=== PATIENT | female | born 1995 | race Caucasian/White ===

== ENCOUNTER 2020-01-07 14:49 | Emergency (ER) | payer MEDICAID ==
[~2020-01-07] VITALS: Ht 152.4 cm; Wt 82.6 kg
--- NOTE | 2020-01-07 14:50 | NUR ---
BIBA TAKEN TO BED 12
[2020-01-07 15:00] VITALS: BP 110/46
--- NOTE | 2020-01-07 15:10 | NUR ---
PT WAS BIBA FROM HOME FOR ANXIETY ATTACK AND SOB. DENIES COVID-19 RELATED SX AT THIS TIME. REPORTS DRINKING ALCOHOL ONE HOUR AGO, THAT EXACERBATED THE ANXIETY. PATIENT STATES PAIN OF 0/10 AT THIS TIME; VSS; PATIENT POSITIONED FOR COMFORT; HOB ELEVATED; BEDRAILS UP X2; BED DOWN. ER MD MADE AWARE OF PT STATUS.
[2020-01-07 16:17] VITALS: BP 98/47
--- NOTE | 2020-01-07 16:17 | NUR ---
Patient discharged with v/s stable. Written and verbal after care instructions given and explained. Patient verbalized understanding. Ambulatory with steady gait. All questions addressed prior to discharge. Advised to follow up with PMD.
[2020-01-07 16:58] LABS: BARBITURATE, URINE NEGATIVE ng/ml (NEG <=200); BENZODIAZEPINE, URINE NEGATIVE ng/mL (NEG <=200); CANNABINOID, URINE NEGATIVE ng/mL (NEG <=50); COCAINE, URINE NEGATIVE ng/mL (NEG <=300); OPIATE, URINE NEGATIVE ng/mL (NEG <=2000); PHENCYCLIDINE SCREEN,URINE NEGATIVE ng/mL (NEG <=25)
== END 2020-01-07 16:17 | disposition home or self-care (01) ==
LOC: MED 14:49
DX: R06.00 Dyspnea, unspecified (principal); F41.9 Anxiety disorder, unspecified; Z90.49 Acquired absence of other specified parts of digestive tract
CPT/HCPCS: 71045; 80305; 81002; 81025; 99284; Q0092

== ENCOUNTER 2020-10-27 14:14 | Emergency (ER) | payer MEDICAID ==
[~2020-10-27] VITALS: Ht 154.9 cm; Wt 77.6 kg
[2020-10-27 14:16] VITALS: BP 116/78
--- NOTE | 2020-10-27 14:30 | NUR ---
25 YO F BIB SELF FOR C/C OF 7/10 HEAD PAIN FROM HEAD LACERATION OBTAINED LAST NIGHT. PT STATES SHE GOT "BLACK OUT DRUNK" LAST NIGHT AND WOKE UP THIS MORNING WITH LAC TO OCCIPITAL PORTION OF HEAD, PT UNSURE HOW SHE OBTAINED LACERATION. PT STATES SHES FEELING DIZZY AND NAUSEOUS WELL. DENIES BLURRY VISION, SOB. NO PMH NKDA
--- NOTE | 2020-10-27 14:55 | NUR ---
PT TAKEN TO BED 10.
--- NOTE | 2020-10-27 15:07 | NUR ---
DR. KOO AT BEDSIDE EVALUATING PT
[2020-10-27] MEDS ORDERED: NACL 0.9% 1,000 ML IV ONE (15:15)
[2020-10-27] MEDS ORDERED: LIDOCAINE MPF 1% 10 MG/ML VIAL INJ ONE (15:15)
[2020-10-27] MEDS ORDERED: ONDANSETRON 4 MG/2 ML VIAL IVP ONE (15:15)
--- NOTE | 2020-10-27 15:48 | NUR ---
Pt taken to CT via w/c accompanied by VICTORIA Rose.
[2020-10-27 16:00] LABS: ANION GAP 17.2 (8-16); CARBON DIOXIDE 24.8 mmol/L (21-32); CREATININE 0.6 mg/dL (0.6-1.3); TOTAL BILIRUBIN 0.5 mg/dL (0.0-1.0)
[2020-10-27 16:05] LABS: BASOPHILS # (AUTO) 0.1 K/uL (0.00-0.22); BASOPHILS % (AUTO) 0.5 % (0.0-2.0); HEMATOCRIT 39.7 % (36-48); HEMOGLOBIN 13.2 g/dL (12.0-16.0); LYMPHOCYTES # (AUTO) 1.1 K/uL (2.5-16.5); LYMPHOCYTES % (AUTO) 7.3 % (20.5-51.1); MEAN CORPUSCULAR HEMOGLOBIN 29 pg (27-31); MEAN CORPUSCULAR HGB CONC 33 g/dL (33-37); MEAN CORPUSCULAR VOLUME 86.2 fL (80-94); MONOCYTES # (AUTO) 0.3 K/uL (0.8-1.0); MONOCYTES % (AUTO) 2.2 % (1.7-9.3); NEUTROPHILS # (AUTO) 13.3 K/uL (1.8-7.7); PLATELET COUNT (AUTO) 306 K/uL (140-450); RED CELL DISTRIBUTION WIDTH 14.2 % (11.6-13.7); WHITE BLOOD COUNT (AUTO) 14.8 K/uL (4.8-10.8)
--- NOTE | 2020-10-27 17:23 | NUR ---
DR. KOO AT BEDSIDE PERFORMING LAC REPAIR
[2020-10-27] MEDS ORDERED: ONDA4TAB PO (18:14)
[2020-10-27] MEDS ORDERED: ACET-8386 PO (18:14)
[2020-10-27 18:30] VITALS: BP 106/50
--- NOTE | 2020-10-27 18:30 | NUR ---
Patient discharged with v/s stable. Written and verbal after care instructions given and explained. Patient alert, oriented and verbalized understanding of instructions. Ambulatory with steady gait. All questions addressed prior to discharge. ID band removed. Patient advised to follow up with PMD. Rx of OZIEL GONZALEZ given. Patient educated on indication of medication including possible reaction and side effects. Opportunity to ask questions provided and answered.
== END 2020-10-27 18:30 | disposition home or self-care (01) ==
LOC: MED 14:14
DX: S06.0X9A Concussion with loss of consciousness of unspecified duration, initial encounter (principal); S01.01XA Laceration without foreign body of scalp, initial encounter; W18.39XA Other fall on same level, initial encounter; Y93.89 Activity, other specified; Y92.89 Other specified places as the place of occurrence of the external cause; Y99.8 Other external cause status
CPT/HCPCS: 36415; 70450; 72125; 80053; 81002; 85025; 96361; 96374; 99285; J2001; J2405; J7030

== ENCOUNTER 2021-07-15 03:19 | Emergency (ER) | payer BC, MEDICAID ==
[~2021-07-15] VITALS: Ht 152.4 cm; Wt 76.2 kg
[~2021-07-15 03:19] MED LIST: ACET-8386 PO; ONDA4TAB PO
[2021-07-15 03:20] VITALS: BP 131/67
--- NOTE | 2021-07-15 03:20 | NUR ---
TO BED AMBULATORY
--- NOTE | 2021-07-15 03:35 | NUR ---
26 YO/F BIB SELF W C/O R EYE PAIN 8/10 CONSTANT, SHARP, NON-RAD BEGINNING AT 0200 UPON WAKEING. PT DENIES ANY KNOWN EYE INJURY/TRAUMA. PT DENIES ANY EYE DISCHARGE, FEVERS, CHILLS, N/V/D, C/P, SOB. PT DOES NOT REPORT ANY BLURRY VISION BUT REPORTS SHE DOES NOT OPEN EYE D/T PAIN. ERMD AT BEDSIDE. PT LAYING IN BED LOCKED IN LOWEST POSITION W BREATHING EVEN AND UNLABORED. NAD NOTED, WILL CONTINUE TO MONITOR. PMH:DENIES NKA
--- NOTE | 2021-07-15 03:37 | NUR ---
Dr. Moralez examining patient.
[2021-07-15] MEDS ORDERED: TETRACAINE HCL/PF 0.5% OPTH 4 ML BTL ONE (03:38)
--- NOTE | 2021-07-15 03:39 | NUR ---
PT OPENED EYE DENIES BLURRY VISION BUT REPORTS PAIN AND RE-CLOSED EYE.
[2021-07-15] MEDS ORDERED: ACET-8386 PO (03:50)
[2021-07-15] MEDS ORDERED: ERYT5OIN51 OP (03:50)
[2021-07-15] MEDS ORDERED: IBUP-2213 PO (03:50)
[2021-07-15] MEDS: FLUORESCEIN OPTH STRIP 1 MG OP ONE (03:55)
[2021-07-15 03:57] VITALS: BP 131/67
[2021-07-15] MEDS: TETRACAINE HCL/PF 0.5% OPTH 4 ML BTL OP ONE (03:57)
== END 2021-07-15 03:59 | disposition home or self-care (01) ==
LOC: MED 03:19
DX: S05.01XA Injury of conjunctiva and corneal abrasion without foreign body, right eye, initial encounter (principal); Z90.49 Acquired absence of other specified parts of digestive tract; Z79.899 Other long term (current) drug therapy; X58.XXXA Exposure to other specified factors, initial encounter; Y93.89 Activity, other specified; Y92.89 Other specified places as the place of occurrence of the external cause; Y99.8 Other external cause status
CPT/HCPCS: 99283

== ENCOUNTER 2021-12-02 15:42 | Emergency (ER) | payer BC ==
[~2021-12-02] VITALS: Ht 154.9 cm; Wt 86.2 kg
[~2021-12-02 15:42] MED LIST changes: +ERYT5OIN51 OP; +IBUP-2213 PO
[2021-12-02 15:45] VITALS: BP 122/79
--- NOTE | 2021-12-02 16:31 | NUR ---
Pt ambulated to bed 09.
[2021-12-02] MEDS ORDERED: ALBU0.0912 INH (16:42)
--- NOTE | 2021-12-02 16:45 | NUR ---
26 y/o F BIB self from home c/o chest tightness and associated cough x 2 days. Patient A&Ox4, ambulatory, states sternal chest pain, 7/10, sharp/pressure/constant, non-radiating pain that worsens with coughing. Pt also states congestion, chills and productive cough. States chest pain with tightness sensation after coughing or taking deep breaths. Reports son sick at home. Denies n/v/d, constipation, dysuria, urinary symptoms, abdominal pain, fever. Denies medications prior to arrival. Bed locked in lowest position, side rails x 1. HR 120. Lung sounds CTA. PMH/Sx/Meds: Denies NKDA
[2021-12-02] MEDS ORDERED: NACL 0.9% 1,000 ML IV ONE (16:50)
--- NOTE | 2021-12-02 16:55 | NUR ---
RESP PANEL PCR COLLECTED, HANDED TO CPT LEESA
[2021-12-02 17:40] VITALS: BP 116/75
--- NOTE | 2021-12-02 17:49 | NUR ---
IV removed, catheter intact and site benign. Applied folded 4x4 gauze and tape to stop bleeding.
--- NOTE | 2021-12-02 17:50 | NUR ---
Patient discharged with v/s stable. Written and verbal after care instructions given and explained. Patient alert, oriented and verbalized understanding of instructions. Ambulatory with steady gait. All questions addressed prior to discharge. ID band removed. Patient advised to follow up with PMD. Rx of Albuterol Sulfate given. Patient educated on indication of medication including possible reaction and side effects. Opportunity to ask questions provided and answered.
== END 2021-12-02 17:50 | disposition home or self-care (01) ==
LOC: MED 15:42
DX: B34.9 Viral infection, unspecified (principal); Z20.822 Contact with and (suspected) exposure to COVID-19; Z90.49 Acquired absence of other specified parts of digestive tract; Z79.899 Other long term (current) drug therapy
CPT/HCPCS: 87635-QW; 93005; 96360; 99284; J7030